=== PATIENT | male | born 1965 | race Caucasian/White ===

== ENCOUNTER 2021-04-01 07:07 | Day surgery (SDC) | payer BC ==
[2021-03-29 12:21] VITALS: BMI 25.8
[2021-04-01] MEDS ORDERED: BUPIVACAINE HCL/PF 0.25% (2.5MG/ML) 10 ML VIAL ONE (09:19)
[2021-04-01] MEDS ORDERED: MIDAZOLAM HCL 2 MG/2 ML SINGLE DOSE VIAL ONE (09:33)
[2021-04-01] MEDS ORDERED: PROPOFOL 20 ML ONE (09:33)
[2021-04-01] MEDS ORDERED: BUPIVACAINE HCL 50 ML ONE (09:40)
[2021-04-01] MEDS ORDERED: POLYMYXIN B SULFATE 500,000 UNIT VIAL ONE (10:22)
[2021-04-01] MEDS ORDERED: DEXAMETHASONE SOD PHOSPHATE 4 MG/1 ML VIAL ONE (10:51)
[2021-04-01] MEDS ORDERED: ONDANSETRON 4 MG/2 ML VIAL ONE (10:51)
[2021-04-01] MEDS ORDERED: ceFAZolin SODIUM 1 GM VIAL ONE (10:51)
[2021-04-01] MEDS ORDERED: oxyCODONE HCL 5 MG TABLET PO PRN ×2 (11:01)
[2021-04-01] MEDS ORDERED: ONDANSETRON 4 MG/2 ML VIAL IVPUSH PRN (11:01)
[2021-04-01] MEDS ORDERED: LACTATED RINGERS SOLUTION 1,000 ML IV SCH (11:15)
[2021-04-01 11:40] VITALS: TEMP 97.8
[2021-04-01 12:18] VITALS: BP 145/80; PULSE 91
== END 2021-04-01 12:18 | disposition home or self-care (01) ==
LOC: FASU 07:07
PROVIDERS: ATTEND Orthopaedic Surgery
PROC: 0LBS0ZZ Excision of Right Ankle Tendon, Open Approach (ICD-10-PCS; principal; 2021-04-01 10:09)
DX: M1A.0711 Idiopathic chronic gout, right ankle and foot, with tophus (tophi) (principal)
CPT/HCPCS: 87070; 87205; 88304-TC; 88313-TC; 94760